=== PATIENT | male | born 1935 | race Caucasian/White ===

== ENCOUNTER → 2023-08-09 13:03 | Outpatient (REF) | payer OTHER, SELFPAY | LOC: PAVMRI 13:03 | PROVIDERS: ATTENDING PHYSICIAN Specialist; FAMILY PHYSICIAN Internal Medicine | DX: H53.8 Other visual disturbances (principal) | CPT/HCPCS: 70553; A9575 ==

== ENCOUNTER 2024-09-20 20:17 | Emergency (ER) | payer OTHER, SELFPAY ==
[2024-09-20 20:18] VITALS: BP 139/80
[2024-09-20 20:39] VITALS: BP 113/66
[2024-09-20 20:40] VITALS: BMI 21.2
[2024-09-20 21:00] VITALS: BP 122/70
[2024-09-20 21:22] LABS: % Basophils 0.2 % (0-2); % Eosinophils 1.4 % (0-6); % Immature Granulocytes 0.2 % (0-0.5); % Monocytes 6.3 % (1.7-9.3); % Neutrophils 80.9 % (42.2-75.2); Absolute Eosinophils 0.1 10^3/uL (0-0.7); Absolute Lymphocytes 0.9 10^3/uL (1.2-3.4); Absolute Monocytes 0.5 10^3/uL (0.1-0.6); Absolute Neutrophils 6.9 10^3/uL (1.4-6.5); Hematocrit 30.1 % (39.0-52.0); Hemoglobin 9.9 g/dL (13.0-18.0); Mean Corp Hgb Conc. 32.9 g/dL (33.0-37.0); Mean Corpuscular Hgb 30.3 pg (27.0-31.0); Nucleated Red Blood Cells % 0 % (-); Red Blood Cell Count 3.27 10^6/uL (4.70-6.10); Red Cell Dist. Width 13.5 % (11.5-14.5); White Blood Cell Count 8.5 10^3/uL (4.8-10.8)
[2024-09-20 21:26] LABS: ALT (SGPT) < 10 U/L (0-50); AST (SGOT) 23 U/L (17-59); Albumin 3.3 g/dl (3.5-5.0); Alkaline Phosphatase 92 U/L (38-126); Blood Urea Nitrogen 22 mg/dl (9-20); Calcium 8.9 mg/dl (8.4-10.2); Carbon Dioxide 27 mmol/L (22-30); Chloride 106 mmol/L (98-107); Estimated Creatinine Clearance 65 ml/min; Glucose 179 mg/dl (70-99); Potassium 4.7 mmol/L (3.5-5.1); Sodium 137 mmol/L (135-145); Total Bilirubin 0.8 mg/dl (0.2-1.3); Total Protein 6.1 g/dl (6.3-8.2); eGFR > 60.00
--- NOTE | 2024-09-20 21:26 | ED.GENMED ---
History of Present Illness
<Keisha Peter PA-C - Last Filed: 09/22/24 00:30>
General
Chief Complaint: Urinary Symptoms
Source: patient and family ( and daughter at bedside)
Exam Limitations: none
Time Seen by Provider: 09/20/24 20:32
Nursing documentation reviewed up to this point in time: agreed with
History of Present Illness
History of Present Illness:
Patient is an 89-year-old male with history of Parkinson's, hypertension, hyperlipidemia, past prostate CA who presents to the emergency department with his and daughter with concerns of urinary retention. Patient's states that he has not
gone to the bathroom since yesterday morning. She states that he has been getting up frequently throughout the day to use the bathroom although is never able to. He has been eating and drinking a normal amount. Patient also reports that he has
been struggling with constipation and has been following with his primary care, currently receiving treatment for hemorrhoids. However�he did have a small bowel movement this morning.
Patient's daughter is concerned about a possible UTI as he has had a history of these which also presented with urinary retention. He denies any fever or abdominal pain. He has not had any nausea, vomiting. No black or bloody stools. They state
that his mental status is at his baseline however they brought him to the emergency department to get 'on top of' a possible UTI.
Past History
<Keisha Peter PA-C - Last Filed: 09/22/24 00:30>
Past History
ED Past Medical History: Cancer (Prostate cancer treated with XRT), HTN, Hypercholesterolemia and Other (Upper extremity resting tremor/Parkinson's); Negative IDDM or NIDDM
ED Past Surgical History: Brain (Deep brain stimulation for tremor performed at [facility] December 2020) and Other (Melanoma removal)
Social History
Tobacco: Non-smoker
Alcohol: None
Drug: None
Personal:
Employment: Retired
Family History
Family History: Hypertension
Review of Systems
<Keisha Peter PA-C - Last Filed: 09/22/24 00:30>
Review of Systems
Allergies reviewed?: Yes
All Other Systems: ROS reviewed and negative except as documented in HPI and ROS
Phy Exam
<Keisha Peter PA-C - Last Filed: 09/22/24 00:30>
Physical Exam
Physical Exam:
Vitals: Mildly hypertensive on arrival, otherwise vital signs stable. Afebrile
General: Patient is well appearing, no acute distress. Nontoxic appearing
Skin: Warm and dry, no rashes or lesions
Head: Normocephalic, atraumatic
Eyes: Sclera nonicteric.
Throat: Protecting airway
Neck: Normal ROM, no cervical spine tenderness, no meningismus
Cardiac: Regular rate and rhythm, no murmurs.
Pulm: Normal respiratory effort, no wheezes, rales, rhonchi heard on exam
Abdomen: Abdomen soft and nontender. No CVA tenderness.
Rectal: Nonthrombosed external hemorrhoids. No evidence of fecal impaction. Soft brown, heme negative stool in vault.
Extremities: No evidence of cyanosis or edema. Palpable DP pulses bilaterally
Neuro: Alert. Follows commands. Fluid speech. No focal deficit
Psychiatric: Normal affect.
Course
<Keisha Peter PA-C - Last Filed: 09/22/24 00:30>
Orders/Labs/Results
Orders:
Orders
09/20/24 20:54
Bladder Scan- Treatment ONCE
09/20/24 21:03
Complete Blood Count/With Diff Urgent
Comprehensive Metabolic Panel Urgent
09/20/24 22:36
Urinalysis Reflex To Culture Urgent
Date Specimen was Collected: 09/20/24
Time Specimen was Collected: 21:38
Urine Microscopic Reflex Cult Urgent
Urine Culture Urgent
MOISES Source: U
Specimen Description:
Date Specimen was Collected: 09/20/24
Time Specimen was Collected: 21:38
09/20/24 23:14
Bladder Scan- Treatment ONCE
CefTRIAXone [Rocephin] 1,000 mg IV NOW STA
Abnormal Lab Results
09/20/24 09/20/24
21:03 22:36
RBC 3.27 L 10^6/uL
(4.70-6.10)
Hgb 9.9 L g/dL
(13.0-18.0)
Hct 30.1 L %
(39.0-52.0)
MCHC 32.9 L g/dL
(33.0-37.0)
Absolute Neuts (auto) 6.9 H 10^3/uL
(1.4-6.5)
Absolute Lymphs (auto) 0.9 L 10^3/uL
(1.2-3.4)
Neutrophils % 80.9 H %
(42.2-75.2)
Lymphocytes % 11.0 L %
(20.5-51.1)
BUN 22 H mg/dl
(9-20)
Glucose 179 H mg/dl
(70-99)
Total Protein 6.1 L g/dl
(6.3-8.2)
Albumin 3.3 L g/dl
(3.5-5.0)
Urine Ketones 1+ A
(Negative)
Ur Occult Blood Reflex 4+ A
(Negative)
Leukocyte Esterase Rfl 3+ A
(Negative)
Urine WBC (Reflex) >100 A /HPF
(0-5)
Urine Bacteria (Reflex) Moderate A
(Negative)
Urine Albumin (Reflex) 3+ A
(Neg - Trace)
09/20/24 21:03
09/20/24 21:03
Vital Signs
Initial and Last Documented VS:
Initial Vital Signs
Temp Pulse Resp BP Pulse Ox
98.2 F 87 18 139/80 97
09/20/24 20:18 09/20/24 20:18 09/20/24 20:18 09/20/24 20:18 09/20/24 20:18
Last Documented Vital Signs
Temp Pulse Resp BP Pulse Ox
98.2 F 87 18 160/84 95
09/20/24 20:18 09/20/24 20:18 09/20/24 20:18 09/20/24 23:00 09/20/24 21:27
Oniellt;Young Bo PA-C - Last Filed: 09/23/24 06:23>
Orders/Labs/Results
Orders:
Orders
09/20/24 20:54
Bladder Scan- Treatment ONCE
09/20/24 21:03
Complete Blood Count/With Diff Urgent
Comprehensive Metabolic Panel Urgent
09/20/24 22:36
Urinalysis Reflex To Culture Urgent
Date Specimen was Collected: 09/20/24
Time Specimen was Collected: 21:38
Urine Microscopic Reflex Cult Urgent
Urine Culture Urgent
MOISES Source: U
Specimen Description:
Date Specimen was Collected: 09/20/24
Time Specimen was Collected: 21:38
09/20/24 23:14
Bladder Scan- Treatment ONCE
CefTRIAXone [Rocephin] 1,000 mg IV NOW STA
Abnormal Lab Results
09/20/24 09/20/24
21:03 22:36
RBC 3.27 L 10^6/uL
(4.70-6.10)
Hgb 9.9 L g/dL
(13.0-18.0)
Hct 30.1 L %
(39.0-52.0)
MCHC 32.9 L g/dL
(33.0-37.0)
Absolute Neuts (auto) 6.9 H 10^3/uL
(1.4-6.5)
Absolute Lymphs (auto) 0.9 L 10^3/uL
(1.2-3.4)
Neutrophils % 80.9 H %
(42.2-75.2)
Lymphocytes % 11.0 L %
(20.5-51.1)
BUN 22 H mg/dl
(9-20)
Glucose 179 H mg/dl
(70-99)
Total Protein 6.1 L g/dl
(6.3-8.2)
Albumin 3.3 L g/dl
(3.5-5.0)
Urine Ketones 1+ A
(Negative)
Ur Occult Blood Reflex 4+ A
(Negative)
Leukocyte Esterase Rfl 3+ A
(Negative)
Urine WBC (Reflex) >100 A /HPF
(0-5)
Urine Bacteria (Reflex) Moderate A
(Negative)
Urine Albumin (Reflex) 3+ A
(Neg - Trace)
09/20/24 21:03
09/20/24 21:03
Vital Signs
Initial and Last Documented VS:
Initial Vital Signs
Temp Pulse Resp BP Pulse Ox
98.2 F 87 18 139/80 97
09/20/24 20:18 09/20/24 20:18 09/20/24 20:18 09/20/24 20:18 09/20/24 20:18
Last Documented Vital Signs
Temp Pulse Resp BP Pulse Ox
98.2 F 87 18 160/84 95
09/20/24 20:18 09/20/24 20:18 09/20/24 20:18 09/20/24 23:00 09/20/24 21:27
<EVELYN Ascencio Last Filed: 09/22/24 00:30>
MDM/Problems Addressed
Differential Diagnosis Includes:
Not limited to: Acute urinary retention, UTI, constipation, fecal impaction, acute dehydration, medication side effect, etc.
MDM/Problems Addressed:
89-year-old male who presents with family with concerns of urinary retention at home. He is currently being treated for hemorrhoids and constipation with PCP. No history of fever, chills, changes in mental status, significant weakness. Patient
mildly hypertensive on arrival otherwise with stable vital signs. On exam�patient is in no apparent distress. Abdomen benign. Rectal exam reveals nonthrombosed external hemorrhoids with no evidence of fecal impaction. Cardio/pulmonary assessment
unremarkable. Will plan to basic labs, urinalysis, and bladder scan patient. Will plan for Guzman placement if patient found to be in acute urinary retention.
Update: Bladder scan reveals to 275 mL in bladder�not consistent with being unable to urinate for the almost past 2 days. On reassessment�RN found patient's briefs to be wet and it was discovered that patient has been somewhat incontinent over the
past few days which is why it appeared that he was unable to urinate in the bathroom. He has been relieving his bladder. Will attempt to obtain urinalysis. Labs pending.
Update: Labs reviewed. Mild anemia noted which does appear to be new however no evidence of bleeding today. His stool was heme-negative. Chemistry unremarkable. Urine appears infected. Again�no evidence of acute urinary retention today in
emergency department�patient appears to be mildly incontinent which has been an ongoing problem with UTIs in the past. Considered admission however patient's family adamant that he is had no change in mental status and is safe to go home. Will
give dose of IV Rocephin in the emergency department and discharged home on cefdinir based on prior cultures. Very strict return precautions. He will follow-up with primary care regarding new anemia and discussed importance of repeat lab work.
Patient and patient's family comfortable with plan.
Chronic conditions affecting care:
History of frequent UTIs
Acute Exacerbation and/or Progression of Chronic Illness:
Acute UTI
<Keisha Peter PA-C - Last Filed: 09/22/24 00:30>
*Pulse Oximetry
SaO2: 95
Oxygen Mode of Delivery: Room air
Patient hypoxic: no
*EKG
Interpreted by ED Provider?: NA
*Alliance Director Interpretation
Rate: Alliance Director- N/A
*Critical Care Note
Total Time (30-74mins, 75-104mins- exclusive of procedures): Not Applicable
<Young Bo PA-C - Last Filed: 09/23/24 06:23>
Update Note
Update Note:
09/23/24: Urine culture with gram positives. On cefdinir. Sensitivities pending
ED Attending Note
<Keisha Peter PA-C - Last Filed: 09/22/24 00:30>
-
Portions of this chart may have been created with voice recognition software.� Occasional wrong word or��sound alike� substitutions may have occurred due to the inherent limitations of voice recognition software.
Discharge Plan
Departure
Patient Disposition: Home (Routine Discharge)
Date of Disposition: 09/20/24
Time of Disposition: 23:15
Patient with high blood pressure during this ER visit?: Yes
Discharge Problem:
Acute UTI
Instructions: Urinary Tract Infection, Adult (DC), BLOOD PRESSURE
Prescriptions:
New
cefdinir 300 mg capsule
300 mg PO BID 7 Days Qty: 14 0RF
No Action
atorvastatin [Lipitor] 20 mg Tablet
20 mg PO DAILY
docusate sodium [Colace] 100 mg Capsule
100 mg PO DAILY
aspirin 81 mg Tablet,Delayed Release (Dr/Ec)
81 mg PO DAILY
losartan 25 mg Tablet
25 mg PO DAILY
rkdzbfsvndxq-vwufbuip-gehngs Tablet
1 tab PO DAILY
PreserVision AREDS-2 250-90-40-1 mg Capsule
1 tab PO HS
carbidopa-levodopa 25-100 mg Tablet
1 tab PO TID
metoprolol succinate 25 mg Tablet Extended Release 24 Hr
25 mg PO DAILY Qty: 0 0RF
cetirizine 10 mg Tablet
10 mg PO DAILY Qty: 0 0RF
ceftriaxone 2 gram Recon Soln
2,000 mg IV Q24H Qty: 0 0RF
Rx Instructions:
through 01/06/23
Referrals:
William Amanda MD [Family Provider, Internal Medicine] - Follow up in 2-3 days
Activity Restrictions/Additional Instructions:
RETURN TO THE EMERGENCY DEPARTMENT ANY FEVERS, CHILLS, ABDOMINAL/BACK PAIN, NAUSEA/VOMITING, SIGNIFICANT WEAKNESS, CHANGES IN MENTAL STATUS, WORSENING IN CURRENT SYMPTOMS, OR ANY OTHER CONCERNS
- As discussed�there is no evidence of urinary retention in the emergency department today. However�your urine does appear infected. You were given a dose of IV antibiotics and a prescription for oral antibiotics has been sent to the pharmacy.
Please start this tomorrow and take twice a day for the next week.
-You were also found to have a low hemoglobin in the emergency department. Please follow this up with your primary care provider to ensure that this improves/for further evaluation. This may require further lab work and testing. Return with any
signs of bleeding.
- Is important to stay well-hydrated.
- Follow-up with primary care in a few days to ensure symptoms are improving/for further evaluation.
Monitor your symptoms closely and return to the emergency department with any acute worsening/new symptoms or any other concerns
Interventions
Interventions:
*Risk Screen - Suicide Last Done: 09/20/24 20:18
*General Assessment Last Done: 09/20/24 20:40
*Neglect/Abuse Screening Last Done: 09/20/24 20:18
*ED- Fall Risk Assessment Last Done: 09/20/24 20:40
*ED COVID-19 Vaccine History Last Done: 09/20/24 20:40
*Nursing Disposition Last Done: 09/20/24 23:41
ED-Male Genitourinary Assessment Last Done: 09/20/24 20:40
Discharge Date and Time
Discharge Date/Time: 09/20/24 23:47
Print Language: BRUNEIAN
[2024-09-20 21:28] LABS: Platelet Count 197 10^3/uL (130-400)
[2024-09-20 22:00] VITALS: BP 156/82
[2024-09-20 22:46] LABS: Urine Albumin 3+ (Neg - Trace); Urine Bilirubin Negative (Negative); Urine Character Cloudy (Clear); Urine Color Yellow; Urine Glucose Negative (Negative); Urine Ketone 1+ (Negative); Urine Leukocyte 3+ (Negative); Urine Nitrite Negative (Negative); Urine Occult Blood 4+ (Negative); Urine Urobilinogen Negative (Neg - 1+)
[2024-09-20 22:59] LABS: Urine Bacteria Moderate (Negative); Urine White Cell >100 /HPF (0-5)
[2024-09-20 23:00] VITALS: BP 160/84
[2024-09-20] MEDS: ROCEPHIN 1000 MG IV (23:21)
== END 2024-09-20 23:47 | disposition home or self-care (01) ==
LOC: EMR 20:17
PROVIDERS: Physician Assistant; EMERGENCY PHYSICIAN Emergency Medicine; FAMILY PHYSICIAN Internal Medicine
DX: N39.0 Urinary tract infection, site not specified (principal); D64.9 Anemia, unspecified; K64.4 Residual hemorrhoidal skin tags; E78.00 Pure hypercholesterolemia, unspecified; G20.A1 Parkinson's disease without dyskinesia, without mention of fluctuations; I10 Essential (primary) hypertension; Z85.46 Personal history of malignant neoplasm of prostate
CPT/HCPCS: 96374; 99284; 80053; 81003; 81015; 85025; 87077; 87086